=== PATIENT | male | born 1985 | race Two or more races ===

== ENCOUNTER 2018-02-03 06:38 | Day surgery (SDC) | payer BC ==
[2018-02-03] MEDS ORDERED: Propofol 10 mg/ml Inj (20 ML) ONE ×2 (07:57)
[2018-02-03] MEDS ORDERED: Lactated Ringer's 1,000 ML IV ONE (08:00)
--- NOTE | 2018-02-03 08:00 | CP.SDSHP ---
Same Day Surgery H & P - History Proposed Procedure: EGD Pre-Op Diagnosis: abdominal pain - Previous Medical/Surgical History Comments: ADD - Allergies Allergies: Allergies shellfish derived Allergy (Verified 02/01/18 11:43) ITCHING - Physical Exam General Appearance: NAD Vital Signs: Vital Signs 02/03/18 07:19 Temperature 97.8 F Pulse Rate 80 Respiratory 20 Rate Blood Pressure 128/75 O2 Sat by Pulse 98 Oximetry Mental Status: Alert & Oriented x3 Neuro: WNL Heart: WNL Lungs: WNL GI: WNL - {Optional Preform as Required} Abdomen: WNL - Impression Pt. Evaluated Today:Candidate for Anesthesia & Procedure: Yes - Date & Time Date: 02/03/18 Time: 08:00 Short Stay Discharge - Short Stay Discharge Admitting Diagnosis/Reason for Visit: LEFT UPPER QUADRANT PAIN Disposition: HOME/ ROUTINE
[2018-02-03 08:37] VITALS: TEMP 99.1
[2018-02-03 08:38] VITALS: O2SAT 100
[2018-02-03 10:20] VITALS: RESP 16
[2018-02-03 10:36] VITALS: BP 125/69; PULSE 88
== END 2018-02-03 09:30 | disposition home or self-care (01) ==
LOC: C.ENDO 06:38
PROVIDERS: ATTEND Internal Medicine Gastroenterology
DX: R10.12 Left upper quadrant pain (principal); K29.70 Gastritis, unspecified, without bleeding
CPT/HCPCS: 43239; 88305; J2704; J7120